=== PATIENT | female | born 1940 | race Caucasian/White ===

== ENCOUNTER 2022-01-04 10:36 | Day surgery (SDC) | payer BC ==
[2021-12-27 15:27] LABS: BASOPHILS # (AUTO) 0.1 X10'3 (0-0.2); EOSINOPHILS # (AUTO) 0.1 X10'3 (0-0.9); EOSINOPHILS % (AUTO) 1.8 % (0-6); LYMPHOCYTES # (AUTO) 2.3 X10'3 (1.1-4.8); LYMPHOCYTES % (AUTO) 32.9 % (21-51); MEAN CORPUSCULAR HEMOGLOBIN 30.4 PG (27.0-31.0); MEAN CORPUSCULAR HGB CONC 33.6 g/dL (33.0-36.5); MEAN CORPUSCULAR VOLUME 90.3 FL (78-98); MEAN PLATELET VOLUME 8.5 FL (7.4-10.4); MONOCYTES # (AUTO) 0.8 X10'3 (0-0.9); MONOCYTES % (AUTO) 11.7 % (2-12); NEUTROPHILS # (AUTO) 3.7 X10'3 (1.8-7.7); NEUTROPHILS % (AUTO) 52.6 % (42-75); PRE OP HEMATOCRIT 45.1 % (35.0-45.0); PRE OP HEMOGLOBIN 15.2 g/dL (12.0-16.0); PRE OP PLATELET COUNT 316 X10'3 (140-440); RED CELL DISTRIBUTION WIDTH 16.2 % (11.5-14.5)
[2021-12-27 15:32] LABS: ALBUMIN 3.9 G/DL (3.4-5.0); ALBUMIN/GLOBULIN RATIO 1.2 (1.1-1.5); ALKALINE PHOSPHATASE 115 IU/L (46-116); BLOOD UREA NITROGEN 21 MG/DL (7-18); BUN/CREATININE RATIO 20.4 (6.6-38.0); CALCIUM 8.8 MG/DL (8.5-10.1); CHLORIDE 108 MMOL/L (99-107); CREATININE 1.03 MG/DL (0.40-0.90); PRE OP ALT 40 U/L (30-65); PRE OP ANION GAP 8 (8-16); PRE OP AST 24 U/L (10-37); PRE OP BILIRUB, TOTAL 0.6 MG/DL (0.0-1.0); PRE OP GLUCOSE 95 MG/DL (70-104); PRE OP POTASSIUM 4.5 MMOL/L (3.4-5.1); PRE OP SODIUM 143 MMOL/L (135-145); TOTAL CARBON DIOXIDE 26.7 MMOL/L (24-32); TOTAL PROTEIN 7.1 G/DL (6.4-8.2); eGFR 51 ML/MIN
[~2022-01-04] VITALS: Ht 165.1 cm; Wt 79.6 kg
[2022-01-04] VITALS (14 sets, daily range): BP systolic 139–187; BP diastolic 67–91
[~2022-01-04 10:36] MED LIST: ATOR40TA72 PO; GABA-530 PO; LEVO50TA8 PO; MAGN500C4 PO; TRAM50TA2 PO; ceFAZolin inj. 2,000 MG in dextrose 5%-water 100 ML IV ONE; famotidine 20mg tablet PO ONE; ringers solution, lacted 1,000 ML IV SCH
[2022-01-04] MEDS ORDERED: BUPIVAcaine/PF 2.5mg/ml (0.25%) 10ml vial ONE (12:34)
[2022-01-04] MEDS ORDERED: LIDOcaine 0.5% (5mg/ml) 50ml vial ONE (12:43)
[2022-01-04] MEDS ORDERED: fentaNYL/PF 50MCG/1 ML 2ML syringe ONE (12:43)
[2022-01-04] MEDS ORDERED: midazolam 1 mg/ML 2ml injection ONE (12:43)
--- NOTE | 2022-01-04 13:45 | NUR ---
Received from OR via [facility], accompanied by Anesthesiologist ARELI and report given by Anesthesiolgist. PT DROWSY BUT ABLE TO RESPOND TO VERBAL STIMULI. DENIES PAIN OR DISCOMFORT. AFFECTED WRIST DRESSING WITH GAUZE AND JULSE BANDAGE IS CDI. CAP REFILL TO APPENDAGES. ON ROOM AIR.VSS Addendum: 01/04/22 at 1410 by Charline Sanders RN Amended: Links added.
[2022-01-04] MEDS ORDERED: ringers solution, lacted 1,000 ML IV SCH (13:50)
[2022-01-04] MEDS ORDERED: proCHLORperazine 10 MG/2 ml inj IV PRN (13:50)
[2022-01-04] MEDS ORDERED: meperidine/PF 25mg/ml syringe IV PRN ×3 (13:50)
[2022-01-04] MEDS ORDERED: ondansetron/PF 4mg/2ml inj IV PRN (13:50)
[2022-01-04] MEDS ORDERED: morphine 4 MG/ML inj SYRINge IV PRN (13:50)
[2022-01-04] MEDS ORDERED: morphine 2 MG/ML inj. syringe IV PRN (13:50)
--- NOTE | 2022-01-04 15:45 | NUR ---
PT A/O X4. DENIES PAIN OR DISCOMFORT. ABLE TO TOLERATE LIQUIDS. VERBALIZES UNDERSTANDING OF DISCHARGE INSTR. FOLLOW APT MADE. PT ABLE TO STAND AND PIVOT TO CAR. PROGRAMMING COORDINATOR APPLIED SEATBELT. DAUGHTER TRANSPORTING PT HOME; LIVES WITH PT. Addendum: 01/04/22 at 1611 by Charline Sanders RN Amended: Links added.
== END 2022-01-04 15:45 | disposition home or self-care (01) ==
LOC: PAS 10:36
PROVIDERS: ATTEND Orthopaedic Surgery Hand Surgery
DX: M18.12 Unilateral primary osteoarthritis of first carpometacarpal joint, left hand (principal); E03.9 Hypothyroidism, unspecified; Z79.899 Other long term (current) drug therapy; Z98.890 Other specified postprocedural states; Z90.49 Acquired absence of other specified parts of digestive tract; Z98.49 Cataract extraction status, unspecified eye; Z96.643 Presence of artificial hip joint, bilateral
CPT/HCPCS: 25312; 25447; 36415; 80053; 82948; 85025; 87811; J0690; J2175; J2250; J3010; J3490; J7030; J7060; J7120; Z7506; Z7512; A4215; A4615; A7000